=== PATIENT | male | born 2000 ===

== ENCOUNTER 2020-10-18 10:54 | Emergency (ER) | payer SELFPAY ==
[2020-10-18] MEDS ORDERED: Lactated Ringers 1,000 ML IV SCH (13:00)
[2020-10-18 13:15] LABS: BLOOD UREA NITROGEN,BUN 13 mg/dL (7.0-18.0); CARBON DIOXIDE,CO2 19.4 mmol/L (21.0-32.0); CHLORIDE,CL 102 mmol/L (98-107); GLUCOSE RANDOM 108 mg/dL (74-106); POTASSIUM,K 4.1 mmol/L (3.5-5.1); SODIUM,NA 137 mmol/L (136-148)
--- NOTE | 2020-10-18 14:01 | EDM.PDOC ---
ED HPI GENERAL MEDICAL PROBLEM - General Chief Complaint: Fever Stated Complaint: FEVER Time Seen by Provider: 10/18/20 12:30 - History of Present Illness INITIAL COMMENTS - FREE TEXT/NARRATIVE: CHIEF COMPLAINT(S): Fever HISTORY OF PRESENT ILLNESS: This is a 19-year-old man without any significant past medical history who comes to the emergency department with a chief complaint of fever. The patient states that he has a fevers for the past 4 days. He denies any IV drug use, rash, tick bites, dysuria, hematuria, cough, shortness of breath but he does have some runny nose and congestion. In addition he states he has some lower back pain which starts on the bilateral lower back and extends across his lower back. He describes this as achy and rated 4-5 out of 10 not associated with any urinary incontinence, bowel inc ontinence or decrease sensation with wiping. He denies any history of urinary tract infection and denies any testicular pain or swelling. He denies any pain with bowel movements. He states that he was concerned because his urine was darker in color. He states that he has been able to tolerate p.o. and has been drinking water however it is less than before. He denies any neck stiffness or pain. He denies any numbness, tingling, weakness or trouble walking. REVIEW OF SYSTEMS: Constitutional: Positive for fever and chills eyes: Denies eye pain Ears, Nose, Mouth, & Throat: Positive for runny nose and congestion denies earache Cardiovascular: Denies chest pain Respiratory: Denies shortness of breath Gastrointestinal: Denies abdominal pain, nausea, vomiting, diarrhea, hematochezia. Genitourinary: Positive for change in color of urine denies hematuria dysuria Skin:Denies a rash MSK: Positive for lower back pain Neurological: Denies blurred vision, numbness, tingling, weakness Psychiatric: Denies depression PAST MEDICAL HISTORY: As per history of present illness and as reviewed below otherwise noncontributory. SURGICAL HISTORY: As per history of present illness and as reviewed below otherwise noncontributory. SOCIAL HISTORY: As per history of present illness and as reviewed below otherwise noncontributory. FAMILY HISTORY: As per history of present illness and as reviewed below otherwise noncontributory. EXAMINATION OF ORGAN SYSTEMS/BODY AREAS: Constitutional: Blood pressure is 133/79, heart rate 114, respiratory rate 18 with an oxygen saturation 97% on room air. Temperature 36.8 General: Overall well-appearing man who is in no acute distress Psychiatric: Appropriate mood and affect. Eyes: No scleral icterus or conjunctival erythema pupils are equal round r eactive to light. Extraocular movements intact. ENMT: Moist mucous membranes. No pharyngeal erythema mild nasal drainage. Bilateral tympanic membranes without any bulging or erythema. Cardiovascular: Regular, rate, and rhythm. No gallops, murmurs, or rubs. Bilateral upper extremity pulses symmetric and intact. No peripheral edema. No JVD. Respiratory: Lungs clear to auscultation bilaterally. No wheezes, rales, or rhonchi. Gastrointestinal: Soft, non-tender, non-distended. Normoactive bowel sounds Genitourinary: No suprapubic tenderness no CVA tenderness Musculoskeletal: There was no midline cervical, thoracic, or lumbar tenderness. There is bilateral paraspinous muscle tenderness in the lumbar region. No rashes or swelling. No meningeal signs. Skin: No lesions or abrasions. Neurological: Alert, GCS 15 strength and sensation intact in upper and lower extremities bilaterally MEDICAL DECISION MAKING AND COURSE IN THE ED WITH INTERPRETATION/REVIEW OF DIAGNOSTIC STUDIES: This is a 19 male without any significant past medical who comes to the emergency department with fever associated with runny nose, congestion and lower lumbar pain. At this time the patient does not meet any red flag symptoms for back pain therefore no further work-up for this is indicated. Given the concern of change in urine color and the back pain will obtain a urinalysis and obtain basic labs including CBC, BMP. We will provide the patient with 1 L of lactated Ringer's bolus. I do believe his symptoms are likely secondary to viral syndrome however differential does include cystitis ve rsus pyelonephritis. This is also unlikely given that the patient is a male. Laboratory: CBC does not reveal any acute abnormalities however there is lymphocytosis. BMP reveals metabolic acidosis with bicarbonate of 19.4 and hypocalcemia at 8.4. Urinalysis was a clean catch and was negative for leukocyte esterase, negative for nitrites, and negative for blood. Trace ketones with small bilirubin. RBC 0-2, WBC 0-1 and no bacteria seen interpretation: Ketonuria After labs I did discuss results with the patient and given the lymphocytosis I do believe this secondary to a virus. I did discuss with him that there was evidence of some dehydration in his labs given the ketonuria and the metabolic acidosis. I did encourage the patient to continue with p.o. hydration with Gatorade, Pedialyte and to continue to use Tylenol Motrin for fever. If he has any worsening symptoms such as chest pain, shortness of breath, cough, neck stiffness or pain needs to return to the emergency department. He was amenable to discharge at this time and had no further questions DISPOSITION: The patient was discharged home in stable condition. The patient will follow up with primary care physician in 3 to 5 days CONDITION: Fair PROCEDURES: None FINAL IMPRESSION(S)/DIAGNOSES: 1. Acute viral syndrome 2. Acute paraspinal lumbar strain Ralph Delgadillo M.D. Bilateral lower pain Pain Score (Numeric/FACES): 4 - Related Data Allergies Allergy/AdvReac Type Severity Reaction Status Date / Time No Known Allergies Allergy Verified 10/18/20 12:31 Home Meds: Home Meds . [No Known Home Meds] 10/18/20 [History] Past Medical History - Past Health History Medical/Surgical History: Denies Medical/Surgical History Social & Family History - Tobacco Use Tobacco Use Status *Q: Never Tobacco User - Recreational Drug Use Recreational Drug Use: No ED ROS GENERAL - Review of Systems Review Of Systems: See Below ED EXAM, GENERAL - Physical Exam Exam: See Below Course - Vital Signs Last Recorded V/S: Last Vital Signs Temp 36.8 C 10/18/20 12:31 Pulse 94 10/18/20 14:09 Resp 17 10/18/20 14:09 BP 137/87 10/18/20 14:09 Pulse Ox 97 10/18/20 14:09 - Orders/Labs/Meds Labs: Laboratory Tests 10/18/20 10/18/20 10/18/20 Range/Units 12:40 12:50 12:50 WBC 6.79 (4.0-11.0) K/uL RBC 4.75 (4.50-5.90) M/uL Hgb 14.4 (13.0-17.0) g/dL Hct 41.9 (38.0-50.0) % MCV 88.2 (80.0-98.0) fL MCH 30.3 (27.0-32.0) pg MCHC 34.4 (31.0-37.0) g/dL RDW Std Deviation 41.0 (28.0-62.0) fl RDW Coeff of Gavin 13 (11.0-15.0) % Plt Count 192 (150-400) K/uL MPV 9.70 (7.40-12.00) fL Neut % (Auto) 45.1 L (48.0-80.0) % Lymph % (Auto) 42.0 H (16.0-40.0) % [place] % (Auto) 11.8 (0.0-15.0) % Eos % (Auto) 0.1 (0.0-7.0) % Baso % (Auto) 1.0 (0.0-1.5) % Neut # (Auto) 3.1 (1.4-5.7) K/uL Lymph # (Auto) 2.9 H (0.6-2.4) K/uL [place] # (Auto) 0.8 (0.0-0.8) K/uL Eos # (Auto) 0.0 (0.0-0.7) K/uL Baso # (Auto) 0.1 (0.0-0.1) K/uL Nucleated RBC % 0.0 /100WBC Nucleated RBCs # 0 K/uL Sodium 137 (136-148) mmol/L Potassium 4.1 (3.5-5.1) mmol/L Chloride 102 (98-107) mmol/L Carbon Dioxide 19.4 L (21.0-32.0) mmol/L BUN 13 (7.0-18.0) mg/dL Creatinine 1.2 (0.8-1.3) mg/dL Est Cr Clr Drug Dosing 103.71 mL/min Estimated GFR (MDRD) > 60.0 ml/min Glucose 108 H (74-106) mg/dL Calcium 8.4 L (8.5-10.1) mg/dL Urine Color DARK YELLOW Urine Appearance CLEAR Urine pH 6.0 (5.0-8.0) Ur Specific [place] >= 1.030 (1.001-1.035) Urine Protein TRACE H (NEGATIVE) mg/dL Urine Glucose (UA) NEGATIVE (NEGATIVE) mg/dL Urine Ketones TRACE H (NEGATIVE) mg/dL Urine Occult Blood NEGATIVE (NEGATIVE) Urine Nitrite NEGATIVE (NEGATIVE) Urine Bilirubin SMALL H (NEGATIVE) Urine Ictotest NEGATIVE Urine Urobilinogen 1.0 (<2.0) EU/dL Ur Leukocyte Esterase NEGATIVE (NEGATIVE) Urine RBC 0-2 (0-2/HPF) Urine WBC 0-1 (0-5/HPF) Ur Squamous Epith Cells RARE Urine Bacteria NOT SEEN (NEGATIVE) Urine Mucus MODERATE (NONE-MOD) Meds: Medications Discontinued Medications Generic Name Dose Route Start Last Admin Trade Name Swetha PRN Reason Stop Dose Admin Lactated Ringer's 1,000 mls @ 999 mls/hr 10/18/20 13:00 10/18/20 13:05 Ringers, Lactated IV 999 mls/hr ASDIRECTED BENIGNO Administration Departure - Departure Time of Disposition: 14:00 Disposition: Home, Self-Care 01 Condition: Fair Clinical Impression: Viral infection, Lumbar strain - Discharge Information *PRESCRIPTION DRUG MONITORING PROGRAM REVIEWED*: No *COPY OF PRESCRIPTION DRUG MONITORING REPORT IN PATIENT DEVIN: No Instructions: Viral Illness, Adult, Lumbar Strain, Fever, Adult, [id number] Referrals: PCP,None [Primary Care Provider] - Forms: ED Department Discharge Additional Instructions: Your evaluated today on an emergent basis. At this time your labs did suggest that you might be a little bit dehydrated and we did give you some fluids for that. He did not have any signs of infection in your urine and your kidney function was normal. Your labs do suggest a possible viral infection. I would continue using Tylenol and Motrin for fever and is going to be important to maintain hydration with Gatorade, Pedialyte, and water. You have been able to eat I would just continue to try and eat as much as you can as similar to n ormal. If you have any worsening pain, chest pain, shortness of breath or any other concern you are welcome to return to the emergency department otherwise please follow-up with your primary care physician. In addition I believe your lower back pain is likely musculoskeletal please use Tylenol and Motrin for pain relief you may use ice alternating with heat 20 minutes 4 times a day. Please use: Tylenol 500-1000mg every 6 hours (DO NOT TAKE MORE THAN 4000mg in 1 day) Ibuprofen 400mg every 6 hours (Take with food as it can cause ulcers, GI upset) Example schedule: 8:00 AM (Tylenol 500-1000mg) 11:00 AM (Ibuprofen 400mg) 2:00 PM (Tylenol 500-1000mg) 5:00 PM (Ibuprofen 400mg) In addition to Tylenol and Motrin you may use over the counter creams such as Voltaren Cream or Lidocaine Cream (Lidoderm) as needed 4 times a day for symptomatic relief. Ice the area 20 minutes 4 times per day [facility] [address] [place] [address] [facility] [address] [place] [id number] The patient is informed of any results of their evaluation and diagnostic workup and all questions are answered. They are given discharge instructions and return precautions. The patient is stable for discharge. The patient states they understand and agree with the plan and that they will return if their symptoms get worse or if they have any new concerns. The following information is given to patients seen in the emergency department who are being discharged to home. This information is to outline your options for follow-up care. We provide all patients seen in our emergency department with a follow-up referral. The need for follow-up, as well as the timing and circumstances, are variable depending upon the specifics of your emergency department visit. If you don't have a primary care physician on staff, we will provide you with a referral. We always advise you to contact your personal physician following an emergency department visit to inform them of the circumstance of the visit and for follow-up with them and/or the need for any referrals to a consulting specialist. The emergency department will also refer you to a specialist when appropriate. This referral assures that you have the opportunity for follow-up care with a specialist. All of these measure are taken in an effort to provide you with optimal care, which includes your follow-up. Under all circumstances we always encourage you to contact your private physician who remains a resource for coordinating your care. When calling for follow-up care, please make the office aware that this follow-up is from your recent emergency room visit. If for any reason you are refused follow-up, please contact the [facility] Emergency Department at and asked to speak to the emergency department charge nurse. Sepsis Event Note (ED) - Evaluation Sepsis Screening Result: No Definite Risk
== END 2020-10-18 14:14 | disposition home or self-care (01) ==
LOC: MW.ED 10:54
DX: S39.012A Strain of muscle, fascia and tendon of lower back, initial encounter (principal); B34.9 Viral infection, unspecified; X58.XXXA Exposure to other specified factors, initial encounter
CPT/HCPCS: 36415; 80048; 81001; 85025; 99283; J7120